=== PATIENT | female | born 1980 ===

== ENCOUNTER → 2020-11-09 08:00 | Outpatient (CLI) | payer OTHER | END | disposition home or self-care (01) | LOC: LAB 08:00 → ADM 10:45 → CIR.AMB 11-15 07:00 → EDSTATUS 11-15 10:45 | PROVIDERS: ATTEND Obstetrics & Gynecology | DX: Z64.1 Problems related to multiparity (principal); Z30.2 Encounter for sterilization ==

== ENCOUNTER 2021-08-09 08:00 | Outpatient (CLI) | payer OTHER | END 2021-08-09 08:30 | disposition home or self-care (01) | LOC: PPH VACUNA 08:00 | PROVIDERS: ATTEND Emergency Medicine Pediatric Emergency Medicine | DX: Z23 Encounter for immunization (principal) ==